=== PATIENT | male | born 1955 | race Caucasian/White ===

== ENCOUNTER 2017-01-02 13:45 | Emergency (ER) | payer MEDICAID ==
--- NOTE | 2017-01-02 13:52 | EDM.PDOC ---
ED HPI GENERAL MEDICAL PROBLEM - General Stated Complaint: PT IS NOT FEELING WELL Time Seen by Provider: 01/02/17 13:46 Source of Information: Reports: Patient History Limitations: Reports: No Limitations - History of Present Illness INITIAL COMMENTS - FREE TEXT/NARRATIVE: History of present illness: [] Patient has a history of throat cancer status post laryngectomy [facility] from August to October he completed chemotherapy and radiation. Past few days he's been feeling "so-so" the past few mornings per his son but today he got markedly worse with weakness and lightheadedness. He has not had a syncopal episode denies any fevers but does have chills. He states he has not have any abdominal pain, nausea, vomiting or diarrhea. Patient also denies any cough or shortness of breath. Review of systems: As per history of present illness and below otherwise all systems reviewed and negative. Past medical history: As per history of present illness and as reviewed below otherwise noncontributory. Surgical history: As per history of present illness and as reviewed below otherwise noncontributory. Social history: No reported history of drug or alcohol abuse. Family history: As per history of present illness and as reviewed below otherwise noncontributory. Physical exam: General: Well developed, well nourished in NAD HEENT: Atraumatic, normocephalic, pupils reactive, negative for conjunctival pallor or scleral icterus, mucous membranes moist, throat clear, neck supple, nontender, trachea midline. Lungs: Clear to auscultation, breath sounds equal bilaterally, chest nontender. Heart: S1S2, regular, negative for clicks, rubs, or JVD. Abdomen: Soft, nondistended, nontender. Negative for masses or hepatosplenomegaly. Negative for costovertebral tenderness. Pelvis: Stable nontender. Genitourinary: Deferred. Rectal: Deferred. Extremities: Atraumatic, negative for cords or calf pain. Neurovascular unremarkable. Neuro: Awake, alert, oriented. Cranial nerves II through XII unremarkable. Cerebellum unremarkable. Motor and sensory unremarkable throughout. Exam nonfocal. Diagnostics: [] Labs and chest x-ray done Therapeutics: [] Patient was hydrated while in the ED awaiting test results Impression: [] Plan: [] Definitive disposition and diagnosis as appropriate pending reevaluation and review of above. - Related Data Allergies Allergy/AdvReac Type Severity Reaction Status Date / Time No Known Allergies Allergy Verified 01/02/17 13:55 Home Meds: Home Meds Acetaminophen 650 mg GTUBE Q6H PRN 01/02/17 [History] Famotidine 20 mg GTUBE BID 01/02/17 [History] Fluconazole [Diflucan] 100 - 200 mg PO DAILY 01/02/17 [History] Levothyroxine [Synthroid] 50 mcg GTUBE ACBREAKFAST 01/02/17 [History] Metoclopramide [Reglan] 5 mg PO QIDACANDBED 01/02/17 [History] Ondansetron HCl [Ondansetron] 8 mg PO Q8H PRN 01/02/17 [History] Prochlorperazine [Compazine] 10 mg GTUBE Q4H PRN 01/02/17 [History] Psyllium Husk [Fiber Therapy] 5 cap GTUBE DAILY 01/02/17 [History] Silver Sulfadiazine [Silvadene 1% Cream 20 GM] 20 gm TOP BID 01/02/17 [History] oxyCODONE HCl [Oxycodone HCl] 5 - 10 mg GTUBE Q4H PRN 01/02/17 [History] Past Medical History HEENT History: Reports: None Cardiovascular History: Reports: None Respiratory History: Reports: None, Pneumothorax Other Respiratory History: 08/04/16 bilateral pneumo Gastrointestinal History: Reports: None Genitourinary History: Reports: None Musculoskeletal History: Reports: None Neurological History: Reports: None Psychiatric History: Reports: None Endocrine/Metabolic History: Reports: None Hematologic History: Reports: None Immunologic History: Reports: None Dermatologic History: Reports: None - Infectious Disease History Infectious Disease History: Reports: None - Past Surgical History HEENT Surgical History: Reports: Oral Surgery Neurological Surgical History: Reports: Other (See Below) Musculoskeletal Surgical History: Reports: Other (See Below) Social & Family History - Family History Family Medical History: Noncontributory - Tobacco Use Smoking Status *Q: Former Smoker Years of Tobacco use: 50 Packs/Tins Daily: 1 Used Tobacco, but Quit: Yes Month Tobacco Last Used: 08/04/16 Second Hand Smoke Exposure: No - Caffeine Use Caffeine Use: Reports: None - Recreational Drug Use Recreational Drug Use: No ED ROS GENERAL - Review of Systems Review Of Systems: See Below (See history of present illness) ED EXAM, GENERAL - Physical Exam Exam: See Below (See history of present illness) Course - Vital Signs Last Recorded V/S: Last Vital Signs Temp 36.3 C 01/02/17 13:56 Pulse 83 01/02/17 13:56 Resp 20 01/02/17 13:56 BP 96/62 01/02/17 13:56 Pulse Ox 98 01/02/17 13:56 - Orders/Labs/Meds Orders: Active Orders 24 hr Category Date Time Status Chest 2V [CR] Stat Exams 01/02/17 14:04 Taken CULTURE BLOOD [BC] Stat Lab 01/02/17 14:15 Received CULTURE BLOOD [BC] Stat Lab 01/02/17 14:23 Received CULTURE URINE [RM] Stat Lab 01/02/17 14:04 Uncollected UA W/MICROSCOPIC [URIN] Stat Lab 01/02/17 14:04 Uncollected Blood Culture x2 Reflex Set [OM.PC] Stat Oth 01/02/17 14:04 Ordered Saline Lock Insert [OM.PC] Stat Oth 01/02/17 14:05 Ordered Labs: Laboratory Tests 01/02/17 01/02/17 Range/Units 14:15 14:15 WBC 4.76 (4.0-11.0) K/uL RBC 3.12 L (4.50-5.90) M/uL Hgb 10.4 L (13.0-17.0) g/dL Hct 30.6 L (38.0-50.0) % MCV 98.1 H (80.0-98.0) fL MCH 33.3 H (27.0-32.0) pg MCHC 34.0 (31.0-37.0) g/dL RDW Std Deviation 57.0 (28.0-62.0) fl RDW Coeff of Kayla 16 H (11.0-15.0) % Plt Count 222 (150-400) K/uL MPV 9.10 (7.40-12.00) fL Neut % (Auto) 59.0 (48.0-80.0) % Lymph % (Auto) 24.8 (16.0-40.0) % [place] % (Auto) 14.5 (0.0-15.0) % Eos % (Auto) 1.3 (0.0-7.0) % Baso % (Auto) 0.4 (0.0-1.5) % Neut # (Auto) 2.8 (1.4-5.7) K/uL Lymph # (Auto) 1.2 (0.6-2.4) K/uL [place] # (Auto) 0.7 (0.0-0.8) K/uL Eos # (Auto) 0.1 (0.0-0.7) K/uL Baso # (Auto) 0.0 (0.0-0.1) K/uL Nucleated RBC % 0.0 /100WBC Nucleated RBCs # 0 K/uL Sodium 137 (136-146) mmol/L Potassium 4.0 (3.5-5.1) mmol/L Chloride 101 (98-110) mmol/L Carbon Dioxide 26 (21-31) mmol/L BUN 13 (6.0-23.0) mg/dL Creatinine 0.9 (0.6-1.5) mg/dL Est Cr Clr Drug Dosing 73.50 mL/min Estimated GFR (MDRD) > 60.0 ml/min Glucose 94 (60-110) mg/dL Calcium 9.3 (8.8-10.8) mg/dL Total Bilirubin 0.3 (0.1-1.5) mg/dL AST 21 (5-40) IU/L ALT 12 (8-54) IU/L Alkaline Phosphatase 67 (40-150) Total Protein 7.5 (6.0-8.0) g/dL Albumin 4.4 (3.5-5.0) g/dL Globulin 3.1 (2.0-3.5) g/dL Albumin/Globulin Ratio 1.4 (1.3-2.8) Meds: Medications Discontinued Medications Generic Name Dose Route Start Last Admin Trade Name Freq PRN Reason Stop Dose Admin Sodium Chloride 1,000 mls @ 999 mls/hr 01/02/17 14:04 01/02/17 14:15 Normal Saline IV 01/02/17 15:04 999 mls/hr .Bolus ONE Administration Departure - Departure Time of Disposition: 15:52 Disposition: Home, Self-Care 01 Condition: good Clinical Impression: Dehydration - Discharge Information Additional Instructions: The following information is given to patients seen in the emergency department who are being discharged to home. This information is to outline your options for follow-up care. We provide all patients seen in our emergency department with a follow-up referral. The need for follow-up, as well as the timing and circumstances, are variable depending upon the specifics of your emergency department visit. If you don't have a primary care physician on staff, we will provide you with a referral. We always advise you to contact your personal physician following an emergency department visit to inform them of the circumstance of the visit and for follow-up with them and/or the need for any referrals to a consulting specialist. The emergency department will also refer you to a specialist when appropriate. This referral assures that you have the opportunity for follow-up care with a specialist. All of these measure are taken in an effort to provide you with optimal care, which includes your follow-up. Under all circumstances we always encourage you to contact your private physician who remains a resource for coordinating your care. When calling for follow-up care, please make the office aware that this follow-up is from your recent emergency room visit. If for any reason you are refused follow-up, please contact the [facility] Emergency Department at and asked to speak to the emergency department charge nurse. Increase fluids followup with primary care; call to establish: [facility] [address] [place] [id number] - My Orders Last 24 Hours: My Active Orders 01/02/17 14:04 Chest 2V [CR] Stat CULTURE URINE [RM] Stat UA W/MICROSCOPIC [URIN] Stat Blood Culture x2 Reflex Set [OM.PC] Stat 01/02/17 14:05 Saline Lock Insert [OM.PC] Stat 01/02/17 14:15 CULTURE BLOOD [BC] Stat 01/02/17 14:23 CULTURE BLOOD [BC] Stat - Assessment/Plan Last 24 Hours: My Active Orders 01/02/17 14:04 Chest 2V [CR] Stat CULTURE URINE [RM] Stat UA W/MICROSCOPIC [URIN] Stat Blood Culture x2 Reflex Set [OM.PC] Stat 01/02/17 14:05 Saline Lock Insert [OM.PC] Stat 01/02/17 14:15 CULTURE BLOOD [BC] Stat 01/02/17 14:23 CULTURE BLOOD [BC] Stat
[2017-01-02] MEDS ORDERED: Sodium Chloride 0.9% 1,000 ML IV ONE (14:04)
[2017-01-02 14:51] LABS: CHLORIDE,CL 101 mmol/L (98-110); SODIUM,NA 137 mmol/L (136-146)
--- NOTE | 2017-01-02 16:06 | CR ---
EXAMINATION: Two-view chest (PA and Lateral views). HISTORY: Shortness of breath. FINDINGS: The trachea is midline. The cardiomediastinal silhouette is within normal limits. No pulmonary infil trates, effusions or pneumothorax. There is a tracheostomy tube noted. Osseous structures appear unremarkable. IMPRESSION: No acute cardiopulmonary process.
[2017-01-02] MEDS ORDERED: Sodium Chloride 0.9% 500 ML IV ONE (16:11)
[2017-01-02 16:44] VITALS: BP 106/66
== END 2017-01-02 16:55 | disposition home or self-care (01) ==
LOC: MW.ED 13:45
DX: E86.0 Dehydration (principal); Z98.890 Other specified postprocedural states; Z79.899 Other long term (current) drug therapy; Z87.891 Personal history of nicotine dependence; Z85.850 Personal history of malignant neoplasm of thyroid
CPT/HCPCS: 36415; 71020; 80053; 85025; 87040; 96360; 99284; J7040; 99283

== ENCOUNTER 2017-04-04 18:38 | Emergency (ER) | payer MEDICAID ==
--- NOTE | 2017-04-04 19:15 | EDM.PDOC ---
ED HPI GENERAL MEDICAL PROBLEM - General Chief Complaint: ENT Problem Stated Complaint: POSSIBLE EAR INFECTION Time Seen by Provider: 04/04/17 19:00 - History of Present Illness INITIAL COMMENTS - FREE TEXT/NARRATIVE: HISTORY AND PHYSICAL: History of present illness: Patient is a 61-year-old white male with history of laryngeal cancer status post laryngectomy who presents concern of right ear pain it's been over last several days but no fever chills nausea vomiting no trauma no other complaints. Review of systems: As per history of present illness and below otherwise all systems reviewed and negative. Past medical history: As per history of present illness and as reviewed below otherwise noncontributory. Surgical history: As per history of present illness and as reviewed below otherwise noncontributory. Social history: No reported history of drug or alcohol abuse. Family history: As per history of present illness and as reviewed below otherwise noncontributory. Physical exam: HEENT: Atraumatic, normocephalic, pupils reactive, negative for conjunctival pallor or scleral icterus, mucous membranes moist,nontender,. Right TM is injected external auditory canal is slightly inflamed absent light reflex is noted left TMs normal Lungs: Clear to auscultation, breath sounds equal bilaterally, chest nontender. Heart: S1S2, regular, negative for clicks, rubs, or JVD. Abdomen: Soft, nondistended, nontender. Negative for masses or hepatosplenomegaly. Negative for costovertebral tenderness. Pelvis: Stable nontender. Genitourinary: Deferred. Rectal: Deferred. Extremities: Atraumatic, negative for cords or calf pain. Neurovascular unremarkable. Neuro: Awake, alert, oriented. Cranial nerves II through XII unremarkable. Cerebellum unremarkable. Motor and sensory unremarkable throughout. Exam nonfocal. Diagnostics: None Therapeutics: None Impression: #1 right otitis media/externa Definitive disposition and diagnosis as appropriate pending reevaluation and review of above. - Related Data Allergies Allergy/AdvReac Type Severity Reaction Status Date / Time No Known Allergies Allergy Verified 01/02/17 13:55 Home Meds: Home Meds Acetaminophen 650 mg GTUBE Q6H PRN 01/02/17 [History] Famotidine 20 mg GTUBE BID 01/02/17 [History] Fluconazole [Diflucan] 100 - 200 mg PO DAILY 01/02/17 [History] Levothyroxine [Synthroid] 50 mcg GTUBE ACBREAKFAST 01/02/17 [History] Metoclopramide [Reglan] 5 mg PO QIDACANDBED 01/02/17 [History] Ondansetron HCl [Ondansetron] 8 mg PO Q8H PRN 01/02/17 [History] Prochlorperazine [Compazine] 10 mg GTUBE Q4H PRN 01/02/17 [History] Psyllium Husk [Fiber Therapy] 5 cap GTUBE DAILY 01/02/17 [History] Silver Sulfadiazine [Silvadene 1% Cream 20 GM] 20 gm TOP BID 01/02/17 [History] oxyCODONE HCl [Oxycodone HCl] 5 - 10 mg GTUBE Q4H PRN 01/02/17 [History] Past Medical History - Past Health History Medical/Surgical History: Denies Medical/Surgical History HEENT History: Reports: None Cardiovascular History: Reports: None Respiratory History: Reports: Pneumothorax Other Respiratory History: 08/04/16 bilateral pneumo Gastrointestinal History: Reports: None Genitourinary History: Reports: None Musculoskeletal History: Reports: None Neurological History: Reports: None Psychiatric History: Reports: None Endocrine/Metabolic History: Reports: None Hematologic History: Reports: None Immunologic History: Reports: None Oncologic (Cancer) History: Reports: Other (See Below) Other Oncologic History: throat cancer Dermatologic History: Reports: None - Infectious Disease History Infectious Disease History: Reports: Chicken Pox, Measles, Mumps - Past Surgical History HEENT Surgical History: Reports: Oral Surgery, Other (See Below) Other HEENT Surgeries/Procedures: Patient had surgery to remove larnyx d/t cancer Neurological Surgical History: Reports: Other (See Below) Musculoskeletal Surgical History: Reports: Other (See Below) Social & Family History - Family History Family Medical History: Noncontributory - Tobacco Use Smoking Status *Q: Former Smoker Years of Tobacco use: 40 Packs/Tins Daily: 1 Used Tobacco, but Quit: Yes Month Tobacco Last Used: 07/2016 Second Hand Smoke Exposure: No - Caffeine Use Caffeine Use: Reports: Coffee, Soda Caffeine Use Comment: 2 cups daily - Recreational Drug Use Recreational Drug Use: No ED ROS GENERAL - Review of Systems Review Of Systems: ROS reveals no pertinent complaints other than HPI. ED EXAM, GENERAL - Physical Exam Exam: See Below (See dictation) Course - Vital Signs Last Recorded V/S: Last Vital Signs Temp 37.1 C 04/04/17 19:01 Pulse 73 04/04/17 19:01 Resp 12 04/04/17 19:01 BP 99/58 L 04/04/17 19:01 Pulse Ox 100 04/04/17 19:01 Departure - Departure Time of Disposition: 19:14 Disposition: Home, Self-Care 01 Condition: Good Clinical Impression: Otitis media, Otitis externa - Discharge Information Referrals: PCP,None [Primary Care Provider] - Additional Instructions: The following information is given to patients seen in the emergency department who are being discharged to home. This information is to outline your options for follow-up care. We provide all patients seen in our emergency department with a follow-up referral. The need for follow-up, as well as the timing and circumstances, are variable depending upon the specifics of your emergency department visit. If you don't have a primary care physician on staff, we will provide you with a referral. We always advise you to contact your personal physician following an emergency department visit to inform them of the circumstance of the visit and for follow-up with them and/or the need for any referrals to a consulting specialist. The emergency department will also refer you to a specialist when appropriate. This referral assures that you have the opportunity for followup care with a specialist. All of these measure are taken in an effort to provide you with optimal care, which includes your followup. Under all circumstances we always encourage you to contact your private physician who remains a resource for coordinating your care. When calling for followup care, please make the office aware that this follow-up is from your recent emergency room visit. If for any reason you are refused follow-up, please contact the [facility] emergency department at and asked to speak to the emergency department charge nurse. [facility] [address] [place] [id number] Augmentin Cortisporin is prescribed Motrin and Tylenol as directed follow-up primary medical doctor and/or clinic above is discussed return as needed as discussed
[2017-04-04 19:24] VITALS: BP 96/54
== END 2017-04-04 19:33 | disposition home or self-care (01) ==
LOC: MW.ED 18:38
DX: H66.91 Otitis media, unspecified, right ear (principal); H60.91 Unspecified otitis externa, right ear; Z85.21 Personal history of malignant neoplasm of larynx; Z90.02 Acquired absence of larynx; Z87.891 Personal history of nicotine dependence; Z79.899 Other long term (current) drug therapy
CPT/HCPCS: 99282